=== PATIENT | female | born 1985 | race Caucasian/White ===

== ENCOUNTER 2019-12-08 06:20 | Inpatient (IN) ==
[2019-12-08] MEDS ORDERED: LR 1000 ML IV 1,000 ML IV ONE (06:21)
[2019-12-08] MEDS ORDERED: NS 100 ML IV 100 ML IV ONE ×2 (06:21→10:20)
[2019-12-08] MEDS ORDERED: FENTANYL INJ 100 mcg ONE (06:22)
[2019-12-08] MEDS ORDERED: D5LR 1L W PITOCIN 10 UNITS/L 10 UNITS/1,000 ML BAG IV ONE (06:22)
[2019-12-08] MEDS ORDERED: NAROPIN EPIDURAL 0.2% + FENTANYL 90MCG 60 ML EPI ONE (06:23)
[2019-12-08] MEDS ORDERED: PITOCIN ONE (06:23)
[2019-12-08] MEDS ORDERED: D5 1/2 NS 1000 ML 1,000 ML IV ONE (06:23)
[2019-12-08] MEDS ORDERED: D5 1/2 NS 1L W PITOCIN 20 UNITS/L 20 UNITS/1,000 ML BAG IV ONE (06:23)
[2019-12-08] MEDS ORDERED: AMPICILLIN VIAL 2 GRAM ONE (06:23)
[2019-12-08] MEDS ORDERED: PITOCIN IVP ONE (06:45)
[2019-12-08] MEDS ORDERED: REGLAN INJ 10 MG VIAL IVP PRN (06:45)
[2019-12-08] MEDS ORDERED: AMPICILLIN VIAL 2 GRAM 2 G in NS 100 ML IV + SPIKE MINIBAG* 100 ML IV SCH (06:45)
[2019-12-08] MEDS ORDERED: D5LR 1L W PITOCIN 10 UNITS/L 10 UNITS/1,000 ML BAG IV PRN (06:45)
[2019-12-08] MEDS ORDERED: MORPHINE SULFATE INJ 2 MG INJ IVP PRN (06:45)
[2019-12-08] MEDS: D5 1/2 NS 1000 ML 1,000 ML IV SCH ×2 (06:45→15:41)
[2019-12-08] MEDS ORDERED: PHENERGAN INJ 25 MG IM PRN ×2 (06:45→14:15)
[2019-12-08] MEDS ORDERED: NUBAIN INJ 200 MG VIAL MULTIDOSE IVP PRN (06:45)
--- NOTE | 2019-12-08 07:06 | DR.OB ---
OB Quick Note - Assessment/Plan Assessment/Plan: L&D 12/08/19 at 7:00am S-No complaint. O-Afebrile,VSS DDN=[id number] with good LTV, +accel, no decel. CTX=irregular, mild CVX=2cm/50%/-1/VTX AROM with clear fluid. IUPC and FSE placed. No vaginal lesions. A-IUP at 39 0/7 weeks for induction +GBS P-Begin pitocin induction IV ABX in labor for +GBS Anticipate
[2019-12-08] MEDS: VSL#3 PO SCH ×2 (07:51→10:32)
[2019-12-08] MEDS ORDERED: AMPICILLIN VIAL 1 GRAM ONE (10:20)
[2019-12-08] MEDS: AMPICILLIN VIAL 1 GRAM 1 G in NS 50 ML IV + SPIKE MINIBAG* 50 ML IV SCH ×2 (10:30→15:40)
--- NOTE | 2019-12-08 11:51 | DR.OB ---
OB Quick Note - Assessment/Plan Assessment/Plan: L&D 12/08/19 at 11:45am Pitocin=10mu/min. Ampicillin S-No complaint. s/p epidural. O-Afebrile,VSS RZS=139 with good LTV, +accel, no decel. CTX=q 1 1/2 to 2 min., about 45-55mmHg CVX=4cm/90%/0 A-IUP at 39 0/7 weeks for induction +GBS P-Cont. pitocin induction/IV ABX in labor Anticipate
[2019-12-08] MEDS: D5 1/2 NS 1000 ML 1,000 ML with PITOCIN 20 UNITS IV SCH ×2 (14:05)
[2019-12-08] MEDS ORDERED: MOTRIN TAB 800 MG PO PRN (14:15)
--- NOTE | 2019-12-08 16:06 | DR.OB ---
OB Quick Note - Assessment/Plan Assessment/Plan: Delivery Note [employer] 12/08/19 at 2:00pm Patient complete and pushing. Head delivered over intact perineum. Nuchal cord x 1 reduced. Nose and mouth bulb suctioned. Body delivered over intact perineum. Cord clamped x 2 and cut. Infant handed to attendant. Cord sent for gases. Placenta delivered spontaneously / intact / 3 vessel cord. No CVX / vaginal / perineal tears. Viable female infant, VTX/OA, wt=5'4" and 9/9, stable to NBN. Mother stable to RR. TEL=[id number].
[2019-12-08] MEDS ORDERED: DERMOPLAST PAIN RELIEF SPRAY TOP PRN (17:52)
[2019-12-08] MEDS ORDERED: AMBIEN PO PRN (17:52)
[2019-12-08] MEDS ORDERED: ADACEL or BOOSTRIX TDaP VACCINE IM ONE (17:52)
[2019-12-08] MEDS ORDERED: MILK OF MAGNESIA PO PRN (17:52)
[2019-12-09] MEDS: D5 1/2 NS 1000 ML 1,000 ML with PITOCIN 20 UNITS IV SCH ×4 (00:45→07:10)
[2019-12-09 06:10] LABS: HEMATOCRIT 35.4 % (36.0-47.0); HEMOGLOBIN 12.3 g/dL (12.0-16.0)
[2019-12-09] MEDS ORDERED: PRENATAL PLUS PO SCH (09:00)
[2019-12-09] MEDS ORDERED: VALTREX PO SCH (09:00)
[2019-12-09] MEDS ORDERED: PROTONIX TAB 40 MG PO SCH (09:00)
[2019-12-09] MEDS: VSL#3 PO SCH (09:22)
[2019-12-09] MEDS ORDERED: ADACEL or BOOSTRIX TDaP VACCINE IM ONE (14:00)
[2019-12-09 16:59] VITALS: BP 112/68
== END 2019-12-09 16:20 | disposition home or self-care (01) | DRG 807 ==
LOC: LD 06:20 → MED/SURG 15:08
PROVIDERS: ADMIT Specialist; ATTEND Specialist
DX: Z23 Encounter for immunization; O99.613 Diseases of the digestive system complicating pregnancy, third trimester; Z37.0 Single live birth; Z87.42 Personal history of other diseases of the female genital tract; O99.824 Streptococcus B carrier state complicating childbirth; B95.1 Streptococcus, group B, as the cause of diseases classified elsewhere; Z3A.39 39 weeks gestation of pregnancy